=== PATIENT | male | born 1960 | race American Indian/Alaskan Native ===

== ENCOUNTER 2018-06-29 18:54 | Emergency (ER) | payer BC, OTHER, SELFPAY ==
[2018-06-29 19:55] VITALS: BP 175/85
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
== END 2018-06-30 00:02 | disposition home or self-care (01) ==
LOC: ED 18:54
DX: S86.912A Strain of unspecified muscle(s) and tendon(s) at lower leg level, left leg, initial encounter (principal); V49.49XA Driver injured in collision with other motor vehicles in traffic accident, initial encounter; Y93.89 Activity, other specified; Y99.8 Other external cause status; Y92.410 Unspecified street and highway as the place of occurrence of the external cause
CPT/HCPCS: 99283

== ENCOUNTER 2020-12-11 10:07 | Outpatient (CLI) | payer BC ==
--- NOTE | 2020-12-11 11:17 | XRay Report ---
CHEST 2 VIEWS INDICATION / CLINICAL INFORMATION: COUGH. COMPARISON: None available. FINDINGS: SUPPORT DEVICES: None. HEART / MEDIASTINUM: No significant abnormality. LUNGS / PLEURA: No significant pulmonary abnormality. No significant pleural effusion. No pneumothora x. ADDITIONAL FINDINGS: No significant additional findings. IMPRESSION: 1. No acute abnormality of the chest. Signer Name: Saman Sibley MD Signed: 12/11/2020 11:12 AM Workstation Name: [id number]
== END 2020-12-11 10:08 | disposition home or self-care (01) ==
LOC: XRAY 10:07
PROVIDERS: ATTEND Nurse Practitioner
DX: R05 Cough (principal)
CPT/HCPCS: 71046